=== PATIENT | female | born 1985 | race Caucasian/White ===

== ENCOUNTER 2017-02-07 14:45 | Emergency (ER) | payer BC, OTHER ==
[~2017-02-07] VITALS: Ht 157.5 cm; Wt 53.1 kg
[2017-02-07 16:00] LABS: BLOOD UREA NITROGEN 11 mg/dL (7-18)
[2017-02-07 16:34] LABS: WHITE BLOOD COUNT 7.7 x10^3/uL (3.4-10)
[2017-02-07 16:48] VITALS: BP 95/54
== END 2017-02-07 17:27 | disposition home or self-care (01) ==
LOC: ED 15:33
DX: O20.9 Hemorrhage in early pregnancy, unspecified (principal); Z3A.08 8 weeks gestation of pregnancy
CPT/HCPCS: 36415; 76801; 80048; 82040; 84702; 85025; 86901; 99285

== ENCOUNTER 2017-02-23 16:45 | Emergency (ER) | payer BC, OTHER ==
[~2017-02-23] VITALS: Ht 157.5 cm; Wt 54.0 kg
[2017-02-23 17:20] LABS: HEMOGLOBIN 12.9 g/dL (11.7-16.4); WHITE BLOOD COUNT 7.7 x10^3/uL (3.4-10)
[2017-02-23 18:16] VITALS: BP 96/62
== END 2017-02-23 19:33 | disposition home or self-care (01) ==
LOC: ED 19:28
DX: O02.1 Missed abortion (principal); Z3A.20 20 weeks gestation of pregnancy
CPT/HCPCS: 36415; 76801; 81003; 84702; 85025; 86901; 99285

== ENCOUNTER 2017-10-25 14:08 | Inpatient (IN) | payer BC ==
[~2017-10-25] VITALS: Ht 157.5 cm; Wt 62.7 kg
[2017-10-25] MEDS ORDERED: TERBUTALINE 1 MG/ML, 1ML ONE (14:31)
[2017-10-25 14:43] LABS: MICROSCOPIC INDICATED
[2017-10-25] MEDS ORDERED: TERBUTALINE 1 MG/ML, 1ML SQ ONE (15:00)
[2017-10-25] MEDS ORDERED: MAGNESIUM SULF. PMX 20GM/500ML 500 ML IV ONE (15:02)
[2017-10-25] MEDS ORDERED: MAGNESIUM SULF. PMX 20GM/500ML 500 ML IV SCH (15:13)
[2017-10-25] MEDS ORDERED: LACTATED RINGERS 1,000 ML IV PRN (15:13)
[2017-10-25] MEDS ORDERED: MAGNESIUM SULFATE PMX 4GM/100M 100 ML IVPB ONE (15:30)
[2017-10-25] MEDS ORDERED: MAGNESIUM SULFATE PMX 2GM/50ML 50 ML IVPB ONE (15:30)
[2017-10-25] MEDS ORDERED: INDOMETHACIN 50 MG CAPSULE PO SCH (16:00)
[2017-10-25 16:10] LABS: MEAN CORPUSCULAR HEMOGLOBIN 31.6 pg (27.0-34.8); MEAN CORPUSCULAR HGB CONC 33.6 g/dL (32.4-35.8); MEAN CORPUSCULAR VOLUME 93.9 fL (80-100); MEAN PLATELET VOLUME 9.6 fL (7.4-10.4); PLATELET COUNT 213 x10^3/uL (130-400); RED BLOOD COUNT 4.02 x10^6/uL (3.82-5.3); RED CELL DISTRIBUTION WIDTH 13.1 % (9.6-15.2)
[2017-10-25 16:12] LABS: ALANINE AMINOTRANSFERASE 27 U/L (12-78); ALBUMIN 3.1 g/dL (3.4-5.0); ANION GAP 9 mmol/L (5-15); CALCIUM 9.2 mg/dL (8.5-10.1); CHLORIDE 107 mmol/L (98-107)
[2017-10-25] MEDS ORDERED: INDOMETHACIN 50 MG CAPSULE ONE (16:13)
[2017-10-25 16:15] LABS: ALKALINE PHOSPHATASE 91 U/L (45-117); BILIRUBIN,TOTAL 0.8 mg/dL (0.2-1.0); CREATININE 0.89 mg/dL (0.55-1.02); TOTAL PROTEIN 7.4 g/dL (6.4-8.2)
[2017-10-25 17:16] LABS: BASOPHILS # (AUTO) 0.06 x10^3/uL (0-0.1); BASOPHILS % (AUTO) 0 % (0-1); EOSINOPHILS # (AUTO) 0.07 x10^3/uL (0-0.4); EOSINOPHILS % (AUTO) 0 % (1-7); LYMPHOCYTES % (AUTO) 9 % (22-44); MONOCYTES # (AUTO) 0.67 x10^3/uL (0.2-0.8); MONOCYTES % (AUTO) 4 % (2-9); NEUTROPHILS # (AUTO) 15.62 x10^3/uL (1.8-6.8); NEUTROPHILS % (AUTO) 86 % (42-75)
[2017-10-25 17:17] LABS: MD SCAN
[2017-10-26] MEDS ORDERED: OXYTOCIN 30U/ 0.9% NaCL 500ML 500 ML ONE (00:56)
[2017-10-26] MEDS ORDERED: OXYTOCIN 30U/ 0.9% NaCL 500ML 500 ML IV ONE (04:56)
[2017-10-26] MEDS ORDERED: ONDANSETRON 2MG/ML, 2ML IVPush PRN (05:00)
[2017-10-26] MEDS ORDERED: CALCIUM CARBONATE 500 MG TAB.CHEW PO PRN (05:00)
[2017-10-26] MEDS ORDERED: FENTANYL PF 100 MCG/2ML IVPush PRN (05:00)
[2017-10-26 05:05] LABS: AMPHETAMINE SCREEN, URINE Negative (Negative); BARBITURATE SCREEN, URINE Negative (Negative); BENZODIAZEPINE SCREEN, URINE Negative (Negative); CANNABINOID SCREEN, URINE Negative (Negative); COCAINE SCREEN, URINE Negative (Negative); METHADONE SCREEN, URINE Negative (Negative); OPIATE SCREEN, URINE Negative (Negative)
[2017-10-26] MEDS ORDERED: ACETAMINOPHEN 500 MG TABLET ONE ×2 (05:54→22:58)
[2017-10-26] MEDS ORDERED: OXYTOCIN 30U/ 0.9% NaCL 500ML 500 ML IV PRN (06:17)
[2017-10-26] MEDS: AMPICILLIN 2 GM in SODIUM CHLORIDE 0.9% 100 ML IV SCH ×3 (06:24→18:25)
[2017-10-26] MEDS ORDERED: FENTANYL PF 100 MCG/2ML ONE ×3 (07:25→13:33)
[2017-10-26] MEDS: FENTANYL PF 100 MCG/2ML IVPush PRN ×3 (07:31→13:37)
[2017-10-26] MEDS: LACTATED RINGERS 1,000 ML IV SCH ×2 (07:56→15:54)
[2017-10-26 09:41] LABS: MEAN CORPUSCULAR HGB CONC 33.7 g/dL (32.4-35.8); MEAN PLATELET VOLUME 9.7 fL (7.4-10.4); PLATELET COUNT 132 x10^3/uL (130-400); RED BLOOD COUNT 3.43 x10^6/uL (3.82-5.3); RED CELL DISTRIBUTION WIDTH 13.1 % (9.6-15.2)
[2017-10-26 10:14] LABS: MD YES
[2017-10-26 10:15] LABS: BAND#(MANUAL) 1.65 x10^3/uL; BANDS%(MANUAL) 9 % (0-7); LYMPH#(MANUAL) 0.73 x10^3/uL (1-3.4); LYMPHS% (MANUAL) 4 % (22-44); MONOS#(MANUAL) 0.55 x10^3/uL (0.3-2.7); MONOS% (MANUAL) 3 % (2-9); SEG#(MANUAL) 15.37 x10^3/uL (1.8-6.8); SEGS% (MANUAL) 84 % (42-75)
[2017-10-26 10:16] LABS: <PLATELET ESTIMATE> ADEQUATE; <PLT MORPHOLOGY> NORMAL PLT MORPH; <RBC MORPHOLOGY> NORMAL
[2017-10-26] MEDS ORDERED: MEPERIDINE/PF 100 MG/ML ONE (14:52)
[2017-10-26] MEDS ORDERED: PROMETHAZINE 25 MG/ML, 1ML ONE (14:52)
[2017-10-26] MEDS ORDERED: PROMETHAZINE 25 MG/ML, 1ML IM PRN ×2 (15:00)
[2017-10-26] MEDS ORDERED: MEPERIDINE/PF 100 MG/ML IM PRN (15:00)
[2017-10-26] MEDS ORDERED: FENTANYL/BUPIV./NS/PF 250 ML EPIDCONT ONE (16:10)
[2017-10-26] MEDS ORDERED: BUPIVACAINE 0.25% ONE (16:10)
[2017-10-26] MEDS ORDERED: GENTAMICIN PER PHARMACY MC PRN (23:00)
[2017-10-26] MEDS ORDERED: ACETAMINOPHEN 500 MG TABLET PO PRN ×2 (23:00→23:30)
[2017-10-26] MEDS ORDERED: GENTAMICIN 120 MG in SODIUM CHLORIDE 0.9% 50 ML IV ONE (23:00)
[2017-10-26] MEDS ORDERED: PHARMACOKINETIC MONITORING MC PRN (23:30)
[2017-10-26] MEDS ORDERED: MISOPROSTOL 200 MCG TABLET ONE (23:42)
[2017-10-27] MEDS ORDERED: MISOPROSTOL 200 MCG TABLET VG ONE
[2017-10-27] MEDS: AMPICILLIN 2 GM in SODIUM CHLORIDE 0.9% 100 ML IV SCH ×2 (00:21→12:31)
[2017-10-27] MEDS ORDERED: OXYcodone/APAP 5/325MG TABLET ONE (00:59)
[2017-10-27] MEDS ORDERED: IBUPROFEN 600 MG TABLET ONE (00:59)
[2017-10-27] MEDS ORDERED: OXYTOCIN 30U/ 0.9% NaCL 500ML 500 ML IV SCH ×2 (02:40)
[2017-10-27] MEDS ORDERED: ONDANSETRON 2MG/ML, 2ML IV PRN (03:00)
[2017-10-27] MEDS ORDERED: DOCUSATE 100 MG CAPSULE PO PRN (03:00)
[2017-10-27] MEDS ORDERED: BISACODYL 10 MG SUPP PR PRN (03:00)
[2017-10-27] MEDS ORDERED: CALCIUM CARBONATE 500 MG TAB.CHEW PO PRN (03:00)
[2017-10-27] MEDS ORDERED: OXYcodone/APAP 5/325MG TABLET PO PRN ×2 (03:00)
[2017-10-27] MEDS ORDERED: IBUPROFEN 600 MG TABLET PO PRN (03:00)
[2017-10-27] MEDS ORDERED: ACETAMINOPHEN 325 MG TABLET PO PRN ×2 (03:00)
[2017-10-27] MEDS ORDERED: MISOPROSTOL 200 MCG TABLET PR PRN (03:00)
[2017-10-27] MEDS ORDERED: GENTAMICIN 100 MG in SODIUM CHLORIDE 0.9% 50 ML IV SCH (08:00)
[2017-10-27] MEDS ORDERED: LIDOCAINE-MPF 2% ,5ML ONE (08:21)
[2017-10-27] MEDS ORDERED: PRENATAL VIT/IRON/FA 1 EACH TABLET PO SCH (09:00)
== END 2017-10-27 14:05 | disposition home or self-care (01) | DRG 775 ==
LOC: LDOP 14:08 → LDIP 15:13
PROVIDERS: ADMIT Obstetrics & Gynecology; ATTEND Obstetrics & Gynecology
PROC: 10E0XZZ Delivery of Products of Conception, External Approach (ICD-10-PCS; principal; 2017-10-27)
PROC: 3E0R3BZ Introduction of Anesthetic Agent into Spinal Canal, Percutaneous Approach (ICD-10-PCS; 2017-10-27)
PROC: 00HU33Z Insertion of Infusion Device into Spinal Canal, Percutaneous Approach (ICD-10-PCS; 2017-10-27)
DX: O60.13X0 Preterm labor second trimester with preterm delivery third trimester, not applicable or unspecified (principal); O62.0 Primary inadequate contractions; O34.522 Maternal care for prolapse of gravid uterus, second trimester; O41.1220 Chorioamnionitis, second trimester, not applicable or unspecified; O34.32 Maternal care for cervical incompetence, second trimester; Z3A.22 22 weeks gestation of pregnancy; Z37.1 Single stillbirth
CPT/HCPCS: 36415; 76805; 80053; 80307; 81001; 83735; 84112; 85025; 87070; 87075; 87077; 87086; 87186; 87205; 88305; J0290; J2550; J3010; J3490; J1580; J2175; J2590; J3475; J7120

== ENCOUNTER 2018-01-09 14:45 | Inpatient (IN) | payer BC ==
[~2018-01-09] VITALS: Ht 157.5 cm; Wt 58.2 kg
[2018-01-09 15:27] LABS: BASOPHILS # (AUTO) 0.06 x10^3/uL (0-0.1); BASOPHILS % (AUTO) 1 % (0-1); EOSINOPHILS # (AUTO) 0.12 x10^3/uL (0-0.4); EOSINOPHILS % (AUTO) 2 % (1-7); LYMPHOCYTES # (AUTO) 1.84 x10^3/uL (1-3.4); LYMPHOCYTES % (AUTO) 28 % (22-44); MD NO; MEAN CORPUSCULAR HEMOGLOBIN 29.7 pg (27.0-34.8); MEAN CORPUSCULAR HGB CONC 33.3 g/dL (32.4-35.8); MEAN CORPUSCULAR VOLUME 89.1 fL (80-100); MONOCYTES # (AUTO) 0.53 x10^3/uL (0.2-0.8); MONOCYTES % (AUTO) 8 % (2-9); NEUTROPHILS # (AUTO) 4.05 x10^3/uL (1.8-6.8); NEUTROPHILS % (AUTO) 61 % (42-75); PLATELET COUNT 393 x10^3/uL (130-400); RED BLOOD COUNT 4.23 x10^6/uL (3.82-5.3); RED CELL DISTRIBUTION WIDTH 13.5 % (9.6-15.2)
[2018-01-09 15:33] LABS: ALBUMIN 3.4 g/dL (3.4-5.0); ANION GAP 6 mmol/L (5-15); CHLORIDE 107 mmol/L (98-107)
[2018-01-09 15:39] LABS: ALANINE AMINOTRANSFERASE 17 U/L (12-78); ALKALINE PHOSPHATASE 91 U/L (45-117); BILIRUBIN,TOTAL 0.5 mg/dL (0.2-1.0); CREATININE 0.97 mg/dL (0.55-1.02); TOTAL PROTEIN 8.8 g/dL (6.4-8.2)
[2018-01-09 15:55] LABS: MICROSCOPIC NOT IND
[2018-01-09 16:03] LABS: CULTURE INDICATED? NO
[2018-01-09] MEDS ORDERED: SODIUM CHLORIDE FLUSH 10ML SYR IVF ONE (17:00)
[2018-01-09] MEDS ORDERED: OMNIPAQUE 350 MG/ML, 100ML BOTTLE ONE (17:43)
[2018-01-09] MEDS ORDERED: CEFOTETAN PMX 1GM/50ML 50 ML IV ONE (19:30)
[2018-01-09] MEDS ORDERED: CEFOTETAN PMX 1GM/50ML 50 ML ONE (19:35)
[2018-01-09] MEDS ORDERED: BISACODYL 10 MG SUPP PR PRN (20:30)
[2018-01-09] MEDS ORDERED: POLYETHYLENE GLYCOL 17 GM PACKET PO PRN (20:30)
[2018-01-09] MEDS ORDERED: ONDANSETRON 2MG/ML, 2ML IVPush PRN (20:30)
[2018-01-09] MEDS ORDERED: ONDANSETRON ODT 4 MG PO PRN (20:30)
[2018-01-09] MEDS: SODIUM CHLORIDE 0.9% 1,000 ML IV SCH (22:13)
[2018-01-09] MEDS: ACETAMINOPHEN 325 MG TABLET PO PRN (22:24)
[2018-01-09] MEDS: CEFOTETAN PMX 1GM/50ML 50 ML IV SCH (22:49)
[2018-01-09] MEDS: MORPHINE SULFATE 4 MG/ML, 1ML IVPush PRN (23:25)
[2018-01-10 02:37] VITALS: BP 90/53
[2018-01-10 06:04] LABS: BASOPHILS # (AUTO) 0.04 x10^3/uL (0-0.1); BASOPHILS % (AUTO) 1 % (0-1); CHLORIDE 109 mmol/L (98-107); EOSINOPHILS # (AUTO) 0.13 x10^3/uL (0-0.4); EOSINOPHILS % (AUTO) 2 % (1-7); LYMPHOCYTES # (AUTO) 1.91 x10^3/uL (1-3.4); LYMPHOCYTES % (AUTO) 31 % (22-44); MD NO; MEAN CORPUSCULAR HEMOGLOBIN 29.1 pg (27.0-34.8); MEAN CORPUSCULAR HGB CONC 32.9 g/dL (32.4-35.8); MEAN CORPUSCULAR VOLUME 88.4 fL (80-100); MEAN PLATELET VOLUME 8.7 fL (7.4-10.4); MONOCYTES # (AUTO) 0.46 x10^3/uL (0.2-0.8); MONOCYTES % (AUTO) 8 % (2-9); NEUTROPHILS # (AUTO) 3.56 x10^3/uL (1.8-6.8); NEUTROPHILS % (AUTO) 58 % (42-75); PLATELET COUNT 328 x10^3/uL (130-400); RED BLOOD COUNT 3.74 x10^6/uL (3.82-5.3); RED CELL DISTRIBUTION WIDTH 13.5 % (9.6-15.2)
[2018-01-10 06:09] LABS: ALANINE AMINOTRANSFERASE 12 U/L (12-78); ALBUMIN 2.9 g/dL (3.4-5.0); ALKALINE PHOSPHATASE 76 U/L (45-117); ANION GAP 6 mmol/L (5-15); BILIRUBIN,TOTAL 0.7 mg/dL (0.2-1.0); CALCIUM 8.3 mg/dL (8.5-10.1); CREATININE 1.02 mg/dL (0.55-1.02); TOTAL PROTEIN 7.6 g/dL (6.4-8.2)
[2018-01-10] MEDS: SODIUM CHLORIDE 0.9% 1,000 ML IV SCH ×2 (06:11→15:00)
[2018-01-10 07:41] VITALS: BP 94/56
[2018-01-10] MEDS: SENNA/DOCUSATE TABLET PO SCH (09:00)
[2018-01-10] MEDS: ACETAMINOPHEN 325 MG TABLET PO PRN (09:17)
[2018-01-10] MEDS: CEFOTETAN PMX 1GM/50ML 50 ML IV SCH ×2 (11:06→23:11)
[2018-01-10 13:54] VITALS: BP 104/67
[2018-01-10 15:17] LABS: CLOSTRIDIUM DIFFICILE ANTIGEN NEGATIVE; CLOSTRIDIUM DIFFICILE TOXIN NEGATIVE (Negative)
[2018-01-10 15:22] LABS: CRYPTOSPORIDIUM ANTIGEN Negative (Negative)
[2018-01-10] MEDS: METRONIDAZOLE PMX 500MG/100ML 100 ML IV SCH (16:33)
[2018-01-10 19:17] VITALS: BP 94/56
[2018-01-10] MEDS: FAMOTIDINE 20 MG TABLET PO SCH (20:34)
[2018-01-10] MEDS: MORPHINE SULFATE 4 MG/ML, 1ML IVPush PRN (22:10)
[2018-01-11] MEDS: SODIUM CHLORIDE 0.9% 1,000 ML IV SCH ×2 (00:32→08:30)
[2018-01-11] MEDS: METRONIDAZOLE PMX 500MG/100ML 100 ML IV SCH ×3 (00:32→16:26)
[2018-01-11 02:43] VITALS: BP 95/60
[2018-01-11 06:07] LABS: BASOPHILS # (AUTO) 0.05 x10^3/uL (0-0.1); BASOPHILS % (AUTO) 1 % (0-1); EOSINOPHILS # (AUTO) 0.19 x10^3/uL (0-0.4); EOSINOPHILS % (AUTO) 3 % (1-7); LYMPHOCYTES # (AUTO) 1.98 x10^3/uL (1-3.4); LYMPHOCYTES % (AUTO) 32 % (22-44); MD NO; MEAN CORPUSCULAR HEMOGLOBIN 29.6 pg (27.0-34.8); MEAN CORPUSCULAR HGB CONC 33.6 g/dL (32.4-35.8); MEAN CORPUSCULAR VOLUME 88.2 fL (80-100); MEAN PLATELET VOLUME 8.8 fL (7.4-10.4); MONOCYTES # (AUTO) 0.69 x10^3/uL (0.2-0.8); MONOCYTES % (AUTO) 11 % (2-9); NEUTROPHILS # (AUTO) 3.38 x10^3/uL (1.8-6.8); NEUTROPHILS % (AUTO) 54 % (42-75); PLATELET COUNT 314 x10^3/uL (130-400); RED BLOOD COUNT 3.59 x10^6/uL (3.82-5.3); RED CELL DISTRIBUTION WIDTH 13.5 % (9.6-15.2)
[2018-01-11 06:12] LABS: CHLORIDE 112 mmol/L (98-107)
[2018-01-11 06:22] LABS: ALANINE AMINOTRANSFERASE 13 U/L (12-78); ALBUMIN 2.6 g/dL (3.4-5.0); ALKALINE PHOSPHATASE 73 U/L (45-117); ANION GAP 7 mmol/L (5-15); BILIRUBIN,TOTAL 0.2 mg/dL (0.2-1.0); CALCIUM 7.9 mg/dL (8.5-10.1)
[2018-01-11] MEDS: FAMOTIDINE 20 MG TABLET PO SCH ×2 (08:29→20:35)
[2018-01-11] MEDS: SENNA/DOCUSATE TABLET PO SCH (08:30)
[2018-01-11 09:28] VITALS: BP 94/59
[2018-01-11] MEDS: CEFOTETAN PMX 1GM/50ML 50 ML IV SCH (10:57)
[2018-01-11] MEDS: LACTOBACILLUS CHEW TABLET PO SCH ×3 (11:08→20:35)
[2018-01-11] MEDS: SIMETHICONE 80 MG CHEW TAB PO SCH ×3 (13:27→20:35)
[2018-01-11 14:16] LABS: HCT (SEDRATE) 32.7 % (34.6-47.8)
[2018-01-11 15:52] VITALS: BP 97/62
[2018-01-11 18:46] VITALS: BP 100/62
[2018-01-11] MEDS ORDERED: AZITHROMYCIN 500 MG TABLET PO ONE (20:30)
[2018-01-12 01:34] VITALS: BP 109/63
[2018-01-12 05:09] LABS: BASOPHILS # (AUTO) 0.06 x10^3/uL (0-0.1); BASOPHILS % (AUTO) 1 % (0-1); EOSINOPHILS # (AUTO) 0.18 x10^3/uL (0-0.4); EOSINOPHILS % (AUTO) 2 % (1-7); LYMPHOCYTES # (AUTO) 2.14 x10^3/uL (1-3.4); LYMPHOCYTES % (AUTO) 29 % (22-44); MD NO; MEAN CORPUSCULAR HEMOGLOBIN 29.5 pg (27.0-34.8); MEAN CORPUSCULAR HGB CONC 33.1 g/dL (32.4-35.8); MEAN CORPUSCULAR VOLUME 89.1 fL (80-100); MEAN PLATELET VOLUME 8.6 fL (7.4-10.4); MONOCYTES # (AUTO) 0.53 x10^3/uL (0.2-0.8); MONOCYTES % (AUTO) 7 % (2-9); NEUTROPHILS # (AUTO) 4.57 x10^3/uL (1.8-6.8); NEUTROPHILS % (AUTO) 61 % (42-75); PLATELET COUNT 355 x10^3/uL (130-400); RED BLOOD COUNT 3.86 x10^6/uL (3.82-5.3); RED CELL DISTRIBUTION WIDTH 13.1 % (9.6-15.2)
[2018-01-12 05:22] LABS: ALBUMIN 3.1 g/dL (3.4-5.0); ANION GAP 8 mmol/L (5-15); CALCIUM 8.4 mg/dL (8.5-10.1); CHLORIDE 108 mmol/L (98-107)
[2018-01-12 05:26] LABS: ALANINE AMINOTRANSFERASE 15 U/L (12-78); ALKALINE PHOSPHATASE 71 U/L (45-117); BILIRUBIN,TOTAL 0.3 mg/dL (0.2-1.0); CREATININE 0.98 mg/dL (0.55-1.02); TOTAL PROTEIN 8.1 g/dL (6.4-8.2)
[2018-01-12] MEDS: LACTOBACILLUS CHEW TABLET PO SCH (06:14)
[2018-01-12 07:20] VITALS: BP 101/65
[2018-01-12] MEDS: ACETAMINOPHEN 325 MG TABLET PO PRN (08:45)
[2018-01-12] MEDS: FAMOTIDINE 20 MG TABLET PO SCH (08:45)
[2018-01-12] MEDS: SIMETHICONE 80 MG CHEW TAB PO SCH (08:45)
[2018-01-12] MEDS: SENNA/DOCUSATE TABLET PO SCH (09:00)
[2018-01-12] MEDS ORDERED: AZITHROMYCIN 500 MG TABLET PO ONE (09:00)
[2018-01-12] MEDS ORDERED: IBUP-1484 PO (09:49)
[2018-01-12] MEDS ORDERED: FAMO20TA7 PO (09:49)
[2018-01-12] MEDS ORDERED: ACID1TAB7 PO (09:49)
== END 2018-01-12 10:49 | disposition home or self-care (01) | DRG 372 ==
LOC: ED 19:45 → EDIP 19:50 → 3NE 20:05 → DCLOUNGE 01-12 10:35
PROVIDERS: ADMIT Internal Medicine; ATTEND Internal Medicine
DX: K35.2 Acute appendicitis with generalized peritonitis (principal); E44.1 Mild protein-calorie malnutrition; E11.9 Type 2 diabetes mellitus without complications; D64.9 Anemia, unspecified; N28.1 Cyst of kidney, acquired; Z68.23 Body mass index [BMI] 23.0-23.9, adult
CPT/HCPCS: 36415; 74177; 74270; 76830; 80053; 81003; 83690; 84703; 85025; 85651; 86140; 87046; 87324; 87328; 87329; 87427; 87491; 87591; 96365; Q0162; Q9967; J7030; S0074

== ENCOUNTER 2019-05-04 10:11 | Inpatient (IN) | payer BC ==
[~2019-05-04] VITALS: Ht 157.5 cm; Wt 61.8 kg
[~2019-05-04 10:11] MED LIST: ACID1TAB7 PO; FAMO20TA7 PO; IBUP-1902 PO
[2019-05-04] MEDS ORDERED: LACTATED RINGERS 1,000 ML IV SCH ×2 (12:31→13:37)
[2019-05-04] MEDS ORDERED: CEFAZOLIN PMX 1GM/50ML IVPB ONE (13:00)
[2019-05-04 13:13] LABS: BASOPHILS # (AUTO) 0.03 x10^3/uL (0-0.1); BASOPHILS % (AUTO) 0 % (0-1); EOSINOPHILS % (AUTO) 1 % (1-7); LYMPHOCYTES # (AUTO) 1.73 x10^3/uL (1-3.4); LYMPHOCYTES % (AUTO) 20 % (22-44); MD NO; MEAN CORPUSCULAR HEMOGLOBIN 31.1 pg (27.0-34.8); MEAN CORPUSCULAR HGB CONC 32.9 g/dL (32.4-35.8); MEAN CORPUSCULAR VOLUME 94.5 fL (80-100); MEAN PLATELET VOLUME 8.5 fL (7.4-10.4); MONOCYTES # (AUTO) 0.47 x10^3/uL (0.2-0.8); MONOCYTES % (AUTO) 5 % (2-9); NEUTROPHILS # (AUTO) 6.45 x10^3/uL (1.8-6.8); NEUTROPHILS % (AUTO) 74 % (42-75); PLATELET COUNT 238 x10^3/uL (130-400); RED BLOOD COUNT 3.73 x10^6/uL (3.82-5.3); RED CELL DISTRIBUTION WIDTH 12.9 % (9.6-15.2)
[2019-05-04 13:16] VITALS: BP 100/66
[2019-05-04 13:22] LABS: MICROSCOPIC AUTO
[2019-05-04] MEDS ORDERED: CEFAZOLIN PMX 1GM/50ML 50 ML IVPB ONE (13:30)
[2019-05-04] MEDS ORDERED: METOCLOPRAMIDE 5 MG/ML, 2ML ONE (13:40)
[2019-05-04] MEDS ORDERED: SODIUM CITRATE/CITRIC ACID 30 ML UDC ONE (13:41)
[2019-05-04] MEDS ORDERED: METOCLOPRAMIDE 5 MG/ML, 2ML IV ONE (14:00)
[2019-05-04] MEDS ORDERED: SODIUM CITRATE/CITRIC ACID 30 ML UDC PO ONE (14:00)
[2019-05-04] MEDS ORDERED: DIPHENHYDRAMINE 50 MG/ML, 1ML IVPush PRN (15:00)
[2019-05-04] MEDS ORDERED: DEXAMETHASONE 4 MG/ML, 1ML IV PRN (15:00)
[2019-05-04] MEDS ORDERED: ONDANSETRON 2MG/ML, 2ML IV PRN (15:00)
[2019-05-04] MEDS ORDERED: FENTANYL PF 100 MCG/2ML IV PRN (15:00)
[2019-05-04] MEDS ORDERED: OXYcodone 5 MG/5 ML ORAL.SOL UDC PO PRN (15:00)
[2019-05-04] MEDS ORDERED: EPHEDRINE 50 MG/ML, 1ML IVPush PRN (15:00)
[2019-05-04] MEDS ORDERED: PROMETHAZINE 25 MG/ML, 1ML IV PRN (15:00)
[2019-05-04 17:37] LABS: MICROSCOPIC NOT IND
[2019-05-04] MEDS ORDERED: OXYcodone 5 MG/5 ML ORAL.SOL UDC ONE (17:38)
[2019-05-04] MEDS ORDERED: PREN1TAB60 PO (18:16)
== END 2019-05-04 19:25 | disposition home or self-care (01) | DRG 819 ==
LOC: LDIP 12:15
PROVIDERS: ADMIT Obstetrics & Gynecology Maternal & Fetal Medicine; ATTEND Obstetrics & Gynecology Maternal & Fetal Medicine
PROC: 0UVC7ZZ Restriction of Cervix, Via Natural or Artificial Opening (ICD-10-PCS; principal; 2019-05-04)
DX: O34.32 Maternal care for cervical incompetence, second trimester (principal); Z3A.14 14 weeks gestation of pregnancy
CPT/HCPCS: J0690; J2765; J7120

== ENCOUNTER 2019-10-14 03:43 | Inpatient (IN) | payer BC ==
[~2019-10-14] VITALS: Ht 157.5 cm; Wt 74.8 kg
[~2019-10-14 03:43] MED LIST changes: +PREN1TAB60 PO
[2019-10-14 04:00] VITALS: BP 120/80
[2019-10-14] MEDS ORDERED: FENTANYL PF 100 MCG/2ML ONE (04:25)
[2019-10-14] MEDS ORDERED: OXYTOCIN 30U/ 0.9% NaCL 500ML 500 ML ONE ×2 (04:25→17:36)
[2019-10-14] MEDS ORDERED: MISOPROSTOL 200 MCG TABLET ONE (04:26)
[2019-10-14] MEDS ORDERED: LIDOCAINE 1%, 20ML ONE (04:26)
[2019-10-14] MEDS ORDERED: FENTANYL PF 100 MCG/2ML IVPush PRN (04:30)
[2019-10-14] MEDS: LACTATED RINGERS 1,000 ML IV SCH ×7 (04:34→21:31)
[2019-10-14] MEDS ORDERED: OXYTOCIN 30U/ 0.9% NaCL 500ML 500 ML IV ONE (05:31)
[2019-10-14] MEDS: D5%-LACTATED RINGERS 1,000 ML IV SCH ×2 (05:31→13:31)
[2019-10-14] MEDS ORDERED: FENTANYL/BUPIV./NS/PF 250 ML EPIDCONT SCH ×2 (05:31→06:08)
[2019-10-14] MEDS ORDERED: FENTANYL PF 500 MCG, BUPIVACAINE/PF 0.5%, 30ML 62.5 ML in SODIUM CHLORIDE 0.9% 177.5 ML EPIDCONT SCH (06:00)
[2019-10-14] MEDS ORDERED: TERBUTALINE 1 MG/ML, 1ML IVPush PRN (06:00)
[2019-10-14] MEDS ORDERED: TERBUTALINE 1 MG/ML, 1ML SQ PRN (06:00)
[2019-10-14] MEDS ORDERED: CALCIUM CARBONATE 500 MG TAB.CHEW PO PRN (06:00)
[2019-10-14] MEDS ORDERED: LACTATED RINGERS 1,000 ML IVBOLUS PRN ×2 (06:00→06:30)
[2019-10-14] MEDS ORDERED: SODIUM CITRATE/CITRIC ACID 30 ML UDC PO PRN (06:00)
[2019-10-14] MEDS ORDERED: ONDANSETRON 2MG/ML, 2ML IVPush PRN (06:00)
[2019-10-14] MEDS ORDERED: METOCLOPRAMIDE 5 MG/ML, 2ML IVPush PRN (06:00)
[2019-10-14 06:05] LABS: MEAN CORPUSCULAR HEMOGLOBIN 27.8 pg (27.0-34.8); MEAN CORPUSCULAR HGB CONC 32.1 g/dL (32.4-35.8); MEAN CORPUSCULAR VOLUME 86.6 fL (80-100); MEAN PLATELET VOLUME 9.4 fL (7.4-10.4); PLATELET COUNT 208 x10^3/uL (130-400); RED BLOOD COUNT 4.02 x10^6/uL (3.82-5.3); RED CELL DISTRIBUTION WIDTH 14.8 % (9.6-15.2)
[2019-10-14] MEDS ORDERED: BUPIVACAINE 0.25% ONE (06:05)
[2019-10-14] MEDS ORDERED: LACTATED RINGERS 1,000 ML IV SCH (06:08)
[2019-10-14 06:26] LABS: BASOPHILS # (AUTO) 0.04 x10^3/uL (0-0.1); BASOPHILS % (AUTO) 0 % (0-1); EOSINOPHILS % (AUTO) 1 % (1-7); LYMPHOCYTES # (AUTO) 1.59 x10^3/uL (1-3.4); LYMPHOCYTES % (AUTO) 10 % (22-44); MD SCAN; MONOCYTES # (AUTO) 1.08 x10^3/uL (0.2-0.8); MONOCYTES % (AUTO) 7 % (2-9); NEUTROPHILS # (AUTO) 12.64 x10^3/uL (1.8-6.8); NEUTROPHILS % (AUTO) 82 % (42-75)
[2019-10-14] MEDS ORDERED: EPHEDRINE 50 MG/ML, 1ML IVPush PRN (06:30)
[2019-10-14] MEDS ORDERED: NALOXONE 0.4 MG/ML, 1ML IVPush PRN (06:30)
[2019-10-14 07:22] LABS: MICROSCOPIC INDICATED
[2019-10-14] MEDS ORDERED: EPHEDRINE 50 MG/ML, 1ML ONE (07:24)
[2019-10-14] MEDS: EPHEDRINE 50 MG/ML, 1ML IVPush PRN ×2 (07:30→07:35)
[2019-10-14] MEDS ORDERED: OXYTOCIN 30U/ 0.9% NaCL 500ML 500 ML IV PRN ×2 (10:22)
[2019-10-14] MEDS ORDERED: ACETAMINOPHEN 500 MG TABLET ONE (14:25)
[2019-10-14] MEDS ORDERED: CEFAZOLIN 2,000 MG in SODIUM CHLORIDE 0.9% 50 ML IV SCH (15:00)
[2019-10-14] MEDS ORDERED: ACETAMINOPHEN 500 MG TABLET PO ONE (15:00)
[2019-10-14] MEDS ORDERED: AMPICILLIN 2 GM in SODIUM CHLORIDE 0.9% 100 ML IV SCH (15:00)
[2019-10-14] MEDS ORDERED: MISOPROSTOL 200 MCG TABLET PR PRN (17:00)
[2019-10-14] MEDS ORDERED: GENTAMICIN PER PHARMACY MC PRN (17:00)
[2019-10-14] MEDS ORDERED: DOCUSATE 100 MG CAPSULE PO PRN (17:00)
[2019-10-14] MEDS ORDERED: OXYcodone/APAP 5/325MG TABLET PO PRN (17:00)
[2019-10-14] MEDS ORDERED: OXYcodone IR 5MG TABLET PO PRN (17:00)
[2019-10-14] MEDS ORDERED: ONDANSETRON 2MG/ML, 2ML IV PRN (17:00)
[2019-10-14] MEDS ORDERED: ACETAMINOPHEN 325 MG TABLET PO PRN (17:00)
[2019-10-14] MEDS ORDERED: SIMETHICONE 80 MG CHEW TAB PO PRN (17:00)
[2019-10-14] MEDS: CLINDAMYCIN PMX 900MG/50ML 50 ML IV SCH (17:30)
[2019-10-14] MEDS ORDERED: CLINDAMYCIN PMX 900MG/50ML 50 ML ONE (17:37)
[2019-10-14] MEDS: OXYTOCIN 30U/ 0.9% NaCL 500ML 500 ML IV SCH (17:39)
[2019-10-14] MEDS ORDERED: PHARMACOKINETIC MONITORING MC PRN (18:30)
[2019-10-14] MEDS: GENTAMICIN 120 MG in SODIUM CHLORIDE 0.9% 50 ML IV SCH (18:30)
[2019-10-14] MEDS ORDERED: IBUPROFEN 600 MG TABLET ONE (19:02)
[2019-10-14] MEDS: IBUPROFEN 600 MG TABLET PO PRN (19:15)
[2019-10-14 19:50] VITALS: BP 100/61
[2019-10-15] VITALS: BP 104/67
[2019-10-15] MEDS: CLINDAMYCIN PMX 900MG/50ML 50 ML IV SCH ×2 (01:09→09:30)
[2019-10-15] MEDS: IBUPROFEN 600 MG TABLET PO PRN ×3 (01:15→17:22)
[2019-10-15] MEDS: GENTAMICIN 120 MG in SODIUM CHLORIDE 0.9% 50 ML IV SCH (02:21)
[2019-10-15] MEDS: OXYTOCIN 30U/ 0.9% NaCL 500ML 500 ML IV SCH (02:49)
[2019-10-15 03:31] LABS: MEAN CORPUSCULAR HEMOGLOBIN 27.8 pg (27.0-34.8); MEAN CORPUSCULAR HGB CONC 32.3 g/dL (32.4-35.8); MEAN CORPUSCULAR VOLUME 86.3 fL (80-100); MEAN PLATELET VOLUME 9.4 fL (7.4-10.4); PLATELET COUNT 185 x10^3/uL (130-400); RED BLOOD COUNT 3.35 x10^6/uL (3.82-5.3); RED CELL DISTRIBUTION WIDTH 15.2 % (9.6-15.2)
[2019-10-15 03:54] LABS: BASOPHILS # (AUTO) 0.03 x10^3/uL (0-0.1); BASOPHILS % (AUTO) 0 % (0-1); EOSINOPHILS # (AUTO) 0.14 x10^3/uL (0-0.4); EOSINOPHILS % (AUTO) 1 % (1-7); LYMPHOCYTES % (AUTO) 10 % (22-44); MD SCAN; MONOCYTES # (AUTO) 1.45 x10^3/uL (0.2-0.8); MONOCYTES % (AUTO) 7 % (2-9); NEUTROPHILS # (AUTO) 18.23 x10^3/uL (1.8-6.8); NEUTROPHILS % (AUTO) 82 % (42-75)
[2019-10-15 04:15] VITALS: BP 97/61
[2019-10-15] MEDS: LACTATED RINGERS 1,000 ML IV SCH (05:31)
[2019-10-15] MEDS ORDERED: BUPIVACAINE 0.25% ONE (06:10)
[2019-10-15 08:00] VITALS: BP 95/61
[2019-10-15] MEDS ORDERED: PRENATAL VIT/IRON/FA 1 EACH TABLET PO SCH (09:00)
[2019-10-15 12:15] VITALS: BP 102/64
[2019-10-15 17:15] VITALS: BP 106/65
[2019-10-15 19:55] VITALS: BP 116/75
[2019-10-16] MEDS ORDERED: IBUP-1222 PO (07:40)
[2019-10-16 08:10] VITALS: BP 97/58
== END 2019-10-16 10:40 | disposition home or self-care (01) | DRG 807 ==
LOC: LDOP 03:43 → LDIP 05:39 → 2NW 19:30
PROVIDERS: ADMIT Obstetrics & Gynecology; ATTEND Obstetrics & Gynecology
PROC: 10E0XZZ Delivery of Products of Conception, External Approach (ICD-10-PCS; principal; 2019-10-14)
PROC: 0UQMXZZ Repair Vulva, External Approach (ICD-10-PCS; 2019-10-14)
PROC: 3E0R3BZ Introduction of Anesthetic Agent into Spinal Canal, Percutaneous Approach (ICD-10-PCS; 2019-10-14)
PROC: 00HU33Z Insertion of Infusion Device into Spinal Canal, Percutaneous Approach (ICD-10-PCS; 2019-10-14)
DX: O76 Abnormality in fetal heart rate and rhythm complicating labor and delivery (principal); Z37.0 Single live birth; O70.0 First degree perineal laceration during delivery; O69.1XX0 Labor and delivery complicated by cord around neck, with compression, not applicable or unspecified; Z3A.37 37 weeks gestation of pregnancy
CPT/HCPCS: 36415; 99285; S0020; 81001; 83605; 85025; 86592; 86850; 86900; 87086; G0378; J0290; J3010; J3490; J1580; J2590; J7050; J7120